=== PATIENT | female | born 2000 | race African-American/Black ===

== ENCOUNTER 2024-02-22 12:48 | Emergency (ER) | payer BC, MEDICAID, SELFPAY ==
[2024-02-22] VITALS (9 sets, daily range): BP systolic 111–140; BP diastolic 66–88; PULSE 68–96; RESP 16–26; TEMP 37.1; O2SAT 99–100
--- NOTE | ~2024-02-22 | XR_ITS ---
EXAMINATION: XR chest 2V 02/22/2024 13:20 INDICATION: Chest pain. PROCEDURE: 2 view chest COMPARISON: No prior studies for comparison. FINDINGS: The lungs are clear. The cardiomediastinal silhouette is within normal limits. There are no pleural effusions. There is no pneumothorax suspected. IMPRESSION: 1: NO ACUTE CARDIOPULMONARY DISEASE. Reviewed, dictated and finalized at location B.
--- NOTE | ~2024-02-22 | CT_ITS ---
EXAMINATION: CTA chest PE protocol DATE: 02/22/2024 17:05 INDICATION: chest pain, elevated d dimer TECHNIQUE: Computed tomography angiography (CTA) of the chest was performed with 100 mL Omnipaque-350 intravenous contrast timed to evaluate the pulmonary arteries. Coronal maximum intensity projection 3D-reconstructions were created by the technologist. The dose-length product (DLP) was 166.51 mGy-cm. Automated exposure control and iterative reconstruction technique were employed. COMPARISON: None. FINDINGS: Lung parenchyma and airways: Clear. Pleura: Unremarkable. Thoracic inlet, axillae and chest wall: Unremarkable. Thoracic aorta: No significant dilation. No dissection. Mediastinum: Normal. Heart and pericardium: Normal. Coronary artery calcifications: Absent. Upper abdomen: No significant finding. Bones: No acute osseous finding. Pulmonary arteries: Study quality: Adequate. No pulmonary emboli detected. IMPRESSION: No CT evidence of acute pulmonary embolus. No acute process detected in the chest. Reviewed, dictated and finalized at location K.
--- NOTE | 2024-02-22 12:49 | ECG_ITS ---
Measurements Intervals [place] Rate: 81 P: 61 MS: 147 QRS: 75 QRSD: 82 T: 53 QT: 317 QTc: 369 Interpretive Statements SINUS RHYTHM POSSIBLE LEFT ATRIAL ENLARGEMENT INCOMPLETE RIGHT BUNDLE BRANCH BLOCK BASELINE ARTIFACT- I, III, AVR, AVL BORDERLINE ECG NO PREVIOUS ECG AVAILABLE FOR COMPARISON Electronically Signed On 02-22-2024 13:01:23 CDT by Mateo Stanley D.O.
[2024-02-22 13:15] LABS: Basophils Percent Auto 0.4 % (0.2-1.2); Eosinophils Absolute Auto 0.1 K/mm3 (0-0.3); Eosinophils Percent Auto 1.1 % (0-4.4); Hematocrit 40.5 % (37.0-47.0); Hemoglobin 13.2 g/dL (12.0-15.0); Immature Granulocyte Absolute 0.02 K/mm3 (0.00-0.031); Immature Granulocyte Percent A 0.2 % (0-0.5); Lymphocytes Absolute Auto 2.21 K/mm3 (0.9-3.2); Lymphocytes Percent Auto 22.4 % (18.3-44.2); Mean Corpuscular HGB Conc 32.6 g/dl (32-36); Mean Corpuscular Hemoglobin 30.6 pg (26-34); Mean Platelet Volume 10.5 fl (7.4-10.4); Monocytes Absolute Auto 0.4 K/mm3 (0.1-0.6); Monocytes Percent Auto 4.4 % (2.6-8.5); Neutrophils Absolute Auto 7.1 K/mm3 (1.3-6.7); Neutrophils Percent Auto 71.5 % (45.5-73.1); Platelet Count Result 191 k/mm3 (150-375); Red Blood Count 4.31 M/mm3 (4.2-5.4); White Blood Count 9.9 K/mm3 (4.5-10.0)
[2024-02-22 13:31] LABS: Prothrombin Time 13.8 Seconds (11.1-14.7)
[2024-02-22 13:32] LABS: Partial Thromboplastin Time 29.8 Seconds (22.3-36.8)
[2024-02-22 13:35] LABS: Alanine Aminotransferase 15 U/L (6-35); Albumin Level 4.6 g/dL (3.5-5.1); Alkaline Phosphatase 87 U/L (38-126); Anion Gap 4 mmol/L (4-12); Aspartate Amino Transferase 23 U/L (14-36); Bilirubin,Total 1.4 mg/dL (0.2-1.3); Blood Urea Nitrogen 18 mg/dL (7-17); Calcium 9.5 mg/dL (8.4-10.2); Carbon Dioxide 27 mmol/L (22-30); Chloride 107 mmol/L (98-107); Estimated CRCL calculation 101 ml/min; Estimated Glomerular Filt Rate > 60; Glucose 94 mg/dL (65-110); Lipase 93 U/L (23-300); Potassium 3.8 mmol/L (3.4-5.0); Sodium 138 mmol/L (137-145)
[2024-02-22 13:46] LABS: Troponin I < 0.012 ng/mL (0.000-0.034)
--- NOTE | 2024-02-22 14:10 | ED.CHESTPAIN ---
HPI - Chest Pain General Chief Complaint: Chest Pain Stated Complaint: Chest pain Time Seen by Provider: 02/22/24 13:52 History of Present Illness HPI narrative: 23-year-old female presented to the emergency department for evaluation of sharp chest pain that is been intermittent. Patient states that when she takes deep breath coughs or laughs she does have a sharp substernal chest pain. Patient denies any prior history of PE or DVT. Patient denies any recent illnesses. Patient denies being on any hormone replacement therapy or control. Patient denies any cardiac history. Related Data Allergies Allergy/AdvReac Type Severity Reaction Status Date / Time No Known Allergies Allergy Verified 02/22/24 13:50 Review of Systems Review of Systems: All systems reviewed & are unremarkable except as noted in HPI and below Exam Narrative: APPEARANCE: Well appearing, no pain, no distress, well-nourished. HEAD: normocephalic, atraumatic. EYES: PERRLA/EOMI, conjunctivae clear. NOSE: Normal no drainage EARS:TMS clear with good light reflex. THROAT: Pharynx clear, no exudate. NECK: Supple. No adenopathy, no masses. RESPIRATORY: Airway patent, respirations nonlabored. Clear to auscultation bilaterally, no rales, rhonchi, wheezing. CARDIOVASCULAR: Regular rate and rhythm without murmurs rubs or gallops. ABDOMINAL: Soft, nontender, nondistended, normal bowel sounds MUSCULOSKELETAL: Moves all extremities. Strength/ROM intact, No edema, No calf tenderness. NEURO: Alert. Cranial nerves II through XII intact. Good gait. Good coordination SKIN: Warm, dry. Normal Color Course Course Emergency Course: Patient was updated on the results of workup was comfortable the plan for discharge and close follow-up Vital Signs Vital signs: Vital Signs Temperature 98.8 F 02/22/24 12:53 Pulse Rate 82 02/22/24 12:53 Respiratory Rate 18 02/22/24 12:53 Blood Pressure 140/70 02/22/24 12:53 Pulse Oximetry 100 02/22/24 12:53 Oxygen Delivery Room Air 02/22/24 12:53 Temperature 98.8 F 02/22/24 12:53 Pulse Rate 89 02/22/24 17:47 Respiratory Rate 16 02/22/24 17:47 Blood Pressure 134/87 02/22/24 17:47 Pulse Oximetry 99 02/22/24 17:47 Oxygen Delivery Room Air 02/22/24 13:49 MDM - Chest Pain MDM Narrative Medical decision making narrative: 23-year-old female presenting to the emergency department for evaluation of intermittent chest pain that is worsened with coughing. Patient is afebrile with no leukocytosis and a stable hemoglobin of 13.2. Patient's D-dimer was elevated. Patient had negative serial troponins. CTA showed no evidence of pulmonary embolism. Chest x-ray showed no acute cardiopulmonary abnormality. Patient was updated the results of her workup. Suspect pleurisy as the underlying etiology for his symptoms. Differential Diagnosis Differential diagnosis: Likely stable angina, atypical chest pain and chest pain Lab Data Attestation: I reviewed the patient's lab results. 02/22/24 13:07 02/22/24 13:07 Labs: Lab Results 02/22/24 02/22/24 Range/Units 13:07 16:13 WBC 9.9 (4.5-10.0) K/mm3 RBC 4.31 (4.2-5.4) M/mm3 Hgb 13.2 (12.0-15.0) g/dL Hct 40.5 (37.0-47.0) % MCV 94.0 (80-100) fl MCH 30.6 (26-34) pg MCHC 32.6 (32-36) g/dl RDW 13.0 (11.5-14.5) % Plt Count 191 (150-375) k/mm3 MPV 10.5 H (7.4-10.4) fl Immature Gran % (Auto) 0.2 (0-0.5) % Neut % (Auto) 71.5 (45.5-73.1) % Lymph % (Auto) 22.4 (18.3-44.2) % [place] % (Auto) 4.4 (2.6-8.5) % Eos % (Auto) 1.1 (0-4.4) % Baso % (Auto) 0.4 (0.2-1.2) % Lymph # (Auto) 2.21 (0.9-3.2) K/mm3 [place] # (Auto) 0.4 (0.1-0.6) K/mm3 Eos # (Auto) 0.1 (0-0.3) K/mm3 Baso # (Auto) 0.0 (0.0-0.1) K/mm3 Abs Immat Gran (auto) 0.02 (0.00-0.031) K/mm3 Absolute Neuts (auto) 7.1 H (1.3-6.7) K/mm3 Absolute Nucleated RBC 0.000 (0.0-0.012) K/mm3 Nu
[2024-02-22] MEDS: Please add drug allergy info to patient profile. XX (14:15)
[2024-02-22 14:27] LABS: D Dimer 1.26 ug/mL (<0.48)
[2024-02-22] MEDS: KETOROLAC 15 MG/ML VIAL (*BKC) IV PUSH (14:35)
--- NOTE | 2024-02-22 16:06 | ECG_ITS ---
Measurements Intervals [place] Rate: 70 P: 55 FL: 169 QRS: 72 QRSD: 81 T: 49 QT: 359 QTc: 387 Interpretive Statements SINUS RHYTHM WITH SINUS ARRHYTHMIA INCOMPLETE RIGHT BUNDLE BRANCH BLOCK BORDERLINE ECG COMPARED TO ECG 02/22/2024 12:54:22 SINUS ARRHYTHMIA NOW PRESENT Electronically Signed On 02-23-2024 16:33:49 CDT by Mateo Stanley D.O.
[2024-02-22 16:47] LABS: Troponin I < 0.012 ng/mL (0.000-0.034)
== END 2024-02-22 17:48 | disposition home or self-care (01) ==
PROVIDERS: Emergency Provider Emergency Medicine; Referring Provider Emergency Medicine
DX: R07.9 Chest pain, unspecified (principal); I45.10 Unspecified right bundle-branch block; R94.31 Abnormal electrocardiogram [ECG] [EKG]
CPT/HCPCS: 36415; 71046; 71275; 80053; 81025; 83690; 84484; 85025; 85380; 85610; 85730; 93005; 96374; 99284; J1885; Q9967